=== PATIENT | male | born 1950 | race Caucasian/White ===

== ENCOUNTER → 2020-08-18 | Outpatient (CLI) | payer OTHER ==
[~2020-08-18] MED LIST: AMLODIPINE-BEN1 EACH PO; ELIQUIS2.5 MG PO; ENDOCET 7.5-321 EACH PO; IBUPROFEN200 MG PO; MEN'S MULTIVI200 MCG PO; OMEPRAZOLE40 MG PO
[2020-08-18 08:34] LABS: HEMOGLOBIN 15.9 gm/dl (14.0-17.5); RED BLOOD COUNT 4.96 M/UL (4.20-5.50); WHITE BLOOD COUNT 9.2 K/UL (4.5-11.0)
[2020-08-18 09:00] LABS: BUN/CREATININE RATIO 23 (0-10)
== END ==
LOC: OPSV2 08-02 12:00 → EDSTATUS 07:30 → OPSV2 07:30
PROVIDERS: Orthopaedic Surgery
DX: Z01.812 Encounter for preprocedural laboratory examination (principal); M16.11 Unilateral primary osteoarthritis, right hip
CPT/HCPCS: 80048; 85027; 87081

== ENCOUNTER 2020-08-26 06:33 | Day surgery (SDC) | payer OTHER ==
[~2020-08-26] VITALS: Ht 182.9 cm; Wt 120.2 kg
[~2020-08-26 06:33] MED LIST changes: -ELIQUIS2.5 MG PO; -ENDOCET 7.5-321 EACH PO
[2020-08-26] MEDS ORDERED: ELIQUIS2.5 MG PO (11:02)
[2020-08-26] MEDS ORDERED: ENDOCET 7.5-321 EACH PO (11:02)
[2020-08-27 05:02] LABS: HEMOGLOBIN 12.9 gm/dl (14.0-17.5); RED BLOOD COUNT 4.05 M/UL (4.20-5.50); WHITE BLOOD COUNT 15.2 K/UL (4.5-11.0)
[2020-08-27 05:17] LABS: BUN/CREATININE RATIO 23 (0-10)
== END 2020-08-27 12:18 | disposition home health service (06) ==
LOC: UNDOADMIN 06:33 → ZOBSOF 06:33 → OR 06:33 → EDSTATUS 07:30 → M/S 14:40 → ZOBSOF 14:40 → M/S 08-27 12:18 → OR 08-27 12:18
PROVIDERS: Orthopaedic Surgery
PROC: 3E0T3BZ Introduction of Anesthetic Agent into Peripheral Nerves and Plexi, Percutaneous Approach (ICD-10-PCS; 2020-08-26)
PROC: 0SR90JA Replacement of Right Hip Joint with Synthetic Substitute, Uncemented, Open Approach (ICD-10-PCS; principal; 2020-08-26 10:30)
DX: M16.0 Bilateral primary osteoarthritis of hip (principal); M17.12 Unilateral primary osteoarthritis, left knee; G89.18 Other acute postprocedural pain; I10 Essential (primary) hypertension; K21.9 Gastro-esophageal reflux disease without esophagitis; F17.210 Nicotine dependence, cigarettes, uncomplicated; Z20.822 Contact with and (suspected) exposure to COVID-19; Z79.1 Long term (current) use of non-steroidal anti-inflammatories (NSAID); Z79.899 Other long term (current) drug therapy
CPT/HCPCS: 36415; 73501; 73502; 76000; 80048; 85027; 86850; 86900; 86901; 97110-GP-CQ; 97116-GP-CQ; 97161; 97166; 97535; C1776; J0171; J0592; J0690; J1100; J2001; J2250; J2370; J2795; J3370; J7030; J7050; J7120